=== PATIENT | male | born 1975 | race Caucasian/White ===

== ENCOUNTER 2022-07-18 21:53 | Emergency (ER) | payer OTHER ==
[2022-07-18 22:07] VITALS: BP 173/102
[2022-07-18] MEDS ORDERED: LIDOCAINE PATCH 5% TOP STA (22:30)
[2022-07-18] MEDS ORDERED: oxyCODONE/ACET 5/325 Prepack 4 PO STA (22:30)
[2022-07-18] MEDS ORDERED: CYCLOBENZAPRINE 10 MG TABLET PO STA (22:31)
--- NOTE | 2022-07-18 22:38 | ED Physician Documentation ---
PD HPI NECK PAIN - Stated complaint Stated Complaint: NECK PX - Chief complaint Chief Complaint: Trauma Hd/Nk - History obtained from History obtained from: Patient - Additional information Additional information: Patient is a 47-year-old presenting for evaluation of left-sided neck pain starting yesterday afternoon. Patient had a screening colonoscopy in the morning. When he returned home he immediately took a nap and upon waking from the nap had pain to the left side of his neck. He was instructed to not use NSAIDs after the colonoscopy for 1 week but has tried Tylenol and heat pack without improvement. He reports feeling desperate last night and did take 1 dose of ibuprofen which did not significantly help. He denies trauma or injury or prior neck issues. He denies radiation of the pain into upper extremities. He denies weakness or numbness in extremities. He denies a headache. He does not take blood thinners. Review of Systems Constitutional: denies: Fever Cardiac: denies: Chest pain / pressure Respiratory: denies: Dyspnea GI: denies: Abdominal Pain Musculoskeletal: reports: Neck pain. denies: Back pain Neurologic: denies: Headache, Head injury PD PAST MEDICAL HISTORY - Past Medical History Past Medical History: Yes Cardiovascular: High cholesterol Respiratory: Asthma Neuro: None GI: GERD HEENT: None - Past Surgical History Past Surgical History: Yes General: Appendectomy, Colonoscopy Ortho: Knee replacement - Present Medications Home Medications: Ambulatory Orders Medication Instructions Recorded Confirmed Albuterol Sulfate [Proventil Hfa] 2 puffs INH PRN 07/18/22 Atorvastatin [Lipitor] 10 mg PO DAILY 07/18/22 07/18/22 Cyclobenzaprine [Flexeril] 10 mg PO TID PRN #12 tablet 07/18/22 Fluticasone/Salmeterol [Advair 1 puffs INH BID 07/18/22 07/18/22 500-50 Diskus] Lidocaine Patch 5% [Lidoderm Patch] 1 patch TOP DAILY PRN #10 patch 07/18/22 Oxycodone HCl/Acetaminophen 1 each PO Q6H PRN #10 tablet 07/18/22 [Percocet 5-325 mg Tablet] - Allergies Allergies/Adverse Reactions: Allergies Allergy/AdvReac Type Severity Reaction Status Date / Time doxycycline Allergy Rash Verified 07/18/22 21:58 Penicillins AdvReac Nausea Verified 07/18/22 21:58 - Social History Does the pt smoke?: No Smoking Status: Never smoker Does the pt drink ETOH?: No Does the pt have substance abuse?: No - Immunizations Immunizations are current?: Yes - POLST Patient has POLST: No PD ED PE NORMAL - General General: Alert and oriented X 3, No acute distress, Well developed/nourished - HEENT HEENT: Atraumatic, Moist mucous membranes, Pharynx benign - Neck Neck: Supple, no meningeal sign, No bony TTP, C-Spine cleared by NEXUS criteria - Cardiac Cardiac: RRR, Strong equal pulses - Respiratory Respiratory: No respiratory distress - Back Back: No spinal TTP - Extremities Extremities: Normal ROM s pain - Neuro Neuro: Alert and oriented X 3, chemical blender 2-12 intact, No motor deficit, No sensory deficit, Normal speech PD ED PE EXPANDED - Back Back: No: Vertebral tenderness Back visual: 1 - tenderness Results - Vitals Vitals: Vital Signs - 24 hr 07/18/22 21:59 Temperature 37.6 C Heart Rate 81 Respiratory 16 Rate Blood Pressure 173/102 H O2 Saturation 100 Oxygen O2 Source Room air PD Medical Decision Making - ED course ED course: Patient with atraumatic left-sided neck pain. He is afebrile. No meningismus. He has muscular tenderness on exam.Doubt fracture or dislocation. No red flag signs or symptoms to suggest abscess.His neuro exam is normal.Discussed continuing supportive care as well as advised on concerning symptoms to return for. Departure - Departure Disposition: 01 Home, Self Care Clinical Impression: Neck pain on left side Condition: Stable Instructions: ED Sprain Strain Neck Prescriptions: Cyclobenzaprine [Flexeril] 10 mg PO TID PRN #12 tablet PRN Reason: Spasms Lidocaine Patch 5% [Lidoderm Patch] 1 patch TOP DAILY PRN #10 patch PRN Reason: pain Oxycodone HCl/Acetaminophen [Percocet 5-325 mg Tablet] 1 each PO Q6H PRN #10 tablet PRN Reason: pain Comments: You were evaluated for neck pain. I believe your pain is related to tightness in the muscles around her neck. I have sent a few prescriptions to help you with your symptoms including a narcotic pain medication, muscle relaxer and cane patches to [facility] in [place]. Please return to the emergency department if you have any worsening symptoms. I am prescribing a short course of narcotic pain medication for you. These are potentially dangerous and addictive medications that should be used carefully. These medications may constipate you. Take an [id number] stool softener (docusate) twice daily with plenty of water while taking these medications. If you go 24 hours without a bowel movement, take [id number] miralax, per package instructions. Do not drink or drive while taking these medications. If you received narcotic or sedating medications while in the emergency department, do not drive for 24 hours. Store this medication in a safe, secure place and out of reach of children. It is a violation of federal law to give or sell this medication to another person or to use in a manner other than prescribed. The ED will not refill narcotic prescriptions, including prescriptions lost or stolen. To dispose of unwanted medications: 1. [facility] at [address] in [place] has a medication drop box. They accept prescription medications (in pill form) Wednesday through Wednesday 9:00 a.m. to 5:00 p.m. 2. The [facility] at [place] [employer] accepts prescription medications (in pill form only) for disposal year round. Call for more information. 3. Contact the [facility] for the next [facility] sponsored prescription drug collection event. , [phone], or [phone]; Note that many narcotic pain relievers also contain Tylenol/acetaminophen. Please ensure that your total dose of acetaminophen from all sources does not exceed 3 g (3000 mg) per day. Discharge Date/Time: 07/18/22 22:47
== END 2022-07-18 22:47 | disposition home or self-care (01) ==
LOC: ED 21:53
DX: M54.2 Cervicalgia (principal); M62.48 Contracture of muscle, other site
CPT/HCPCS: 99282; 99283; A9270